=== PATIENT | male | born 1960 | race Caucasian/White ===

== ENCOUNTER 2019-12-15 09:30 | Outpatient (RCR) | payer OTHER ==
[~2019-12-15] VITALS: Ht 180.3 cm; Wt 87.3 kg
[2019-12-15] MEDS ORDERED: ASPI-999 PO (10:28)
[2019-12-15] MEDS ORDERED: ATOR20TA66 PO (10:28)
== END 2019-12-15 10:30 | disposition home or self-care (01) ==
LOC: PREOP 09:30
PROVIDERS: ATTEND Surgery
DX: Z01.818 Encounter for other preprocedural examination (principal)

== ENCOUNTER 2019-12-18 08:54 | Day surgery (SDC) | payer OTHER ==
--- NOTE | 2019-12-11 08:24 | HISTORY AND PHYSICAL ---
DATE OF SERVICE: 12/18/2019 DATE OF ADMISSION: 12/18/2019 ATTENDING PRIMARY PHARMACIST PER DIEM: Bianca Negrete APRN at the [facility] in [place]. HISTORY OF PRESENT ILLNESS: The patient is a 59-year-old male referred over to us for screening colonoscopy. He reports that he did have what sounds to be a Cologuard test, which was found to be positive. He has not had a colonoscopy in the past as well. He states that he does not report any major issues with diarrhea nor constipation as well as no red blood per rectum nor any dark tarry stools. He also does not report any family history of any colon cancer nor any other malignancies. PAST MEDICAL HISTORY: Hypercholesterolemia, sleep apnea. PAST SURGICAL HISTORY: Right inguinal hernia repair 2013, left knee arthroscopy in 1997, varicocele excision in 1985, deviated septum repair in 1988. ALLERGIES: No known drug allergies. MEDICATIONS: Aspirin 81 mg daily, atorvastatin 20 mg daily. SOCIAL HISTORY: Previous smoke, quit 15, 20 pack years. Negative alcohol. FAMILY HISTORY: Noncontributory. VITAL SIGNS: Blood pressure 172/80, current weight 192.2 pounds, height 5 feet 11 inches. REVIEW OF SYSTEMS: Well-nourished male in no acute distress. He is not experiencing any shortness of breath or difficulty breathing. No chest pain, palpitations, diaphoresis. No nausea, vomiting, no diarrhea or constipation. No fever, chills, no recent inadvertent weight loss. All other review of systems negative. PHYSICAL EXAMINATION: CHEST: Clear. Good breath sounds bilaterally. HEART: Regular, no murmurs. EXTREMITIES: No lower extremity edema, negative Homans sign. HEENT: No scleral icterus. NECK: No cervical lymphadenopathy. ABDOMEN: Soft, nontender, nondistended. No hernias. ASSESSMENT AND PLAN: A 59-year-old male with a positive stool DNA study in need of a screening colonoscopy, which we will schedule. Risks and benefits of the procedure were explained in depth and he is in full understanding and would like to proceed with the procedure. Job ID: [id number] DocumentID: [id number] Dictated Date: 12/09/2019 15:38:08 Behavioral Scientist Date: 12/09/2019 15:59:52 Dictated By: TEETEE FRAZIER MD
[2019-12-18] VITALS (14 sets, daily range): BP systolic 117–168; BP diastolic 63–85
[~2019-12-18] VITALS: Ht 180.3 cm; Wt 87.3 kg
[~2019-12-18 08:54] MED LIST: ASPI-999 PO; ATOR20TA66 PO
[2019-12-18] MEDS ORDERED: NS IV 500 ML 500 ML IV PRN (09:02)
[2019-12-18] MEDS ORDERED: NS IV 500 ML 500 ML ONE (09:06)
--- OUTSIDE RECORDS SUMMARY | 2019-12-18 09:09 | XMS REPORT | Continuity of Care Document ---
Author Organization Unknown Address Unknown Phone Unavailable Allergies Active Description Code Type Severity Reaction Onset Reported/Identified Relationship to Patient Clinical Status Yes No Known Drug Allergies [id number] Drug Allergy Unknown N/A 12/15/2019 Medications There is no data. Problems There is no data. Procedures There is no data. Results There is no data. Encounters ACCT No. Visit Date/Time Discharge Status Pt. Type Provider Facility Loc./Unit Complaint [id number] 12/15/2019 09:30:00 020 10:30:00 DIS Outpatient TEETEE FRAZIER MD [facility] PREOP SCREENING [id number] 12/18/2019 12:00:00 P EN Preadmit TEETEE FRAZIER MD [facility] [place] ENDO SCREENING
[2019-12-18] MEDS ORDERED: LIDOCAINE JELLY 2% 6 ML SYRINGE MM PRN (09:15)
[2019-12-18] MEDS ORDERED: fentaNYL INJECTION 100 MCG/2 ML AMP IVP ONE (09:15)
--- NOTE | 2019-12-18 09:18 | Progress Note-Pre Operative ---
Pre-Operative Progress Note H&P Reviewed The H&P was reviewed, patient examined and no changes noted. Date Seen by Provider: Dec 18, 2019 Time Seen by Provider: 09:15 Date H&P Reviewed: Dec 18, 2019 Time H&P Reviewed: 09:15 Pre-Operative Diagnosis: screening TEETEE Simpson MD Dec 18, 2019 09:18
--- NOTE | 2019-12-18 09:18 | Conscious Sedation/ASA ---
Conscious Sedation Pre-Proced Time 09:15 ASA Score 2 For ASA 3 and 4: Consider anesthesia and medical clearance. Also, for patients with a history of failed moderate sedation consider anesthesia. Airway Lungs Heart ASA score ASA 1: a normal healthy patient ASA 2: a patient with a mild systemic disease (mid diabetes, controlled hypertension, obesity ASA 3: a patient with a severe systemic disease that limits activity (angina, COPD, prior Myocardial infarction) ASA 4: a patient with an incapacitating disease that is a constant threat to life (CHF, renal failure) ASA 5: a moribund patient not expected to survive 24 hrs. (ruptured aneurysm) ASA 6: a declared brain- patient whose organs are being harvested. For emergent operations, add the letter E after the classification Mallampati Classification Grade 2 Sedation Plan Analgesia, Amnesia, Plan communicated to team members, Discussed options with patient/fam, Discussed risks with patient/fam The patient is an appropriate candidate to undergo the planned procedure, sedation, and anesthesia. The patient immediately re-assessed prior to indication. TEETEE FRAZIER MD Dec 18, 2019 09:17
--- NOTE | 2019-12-18 09:20 | Discharge Inst-Surgical ---
D/C Lap Instructions-FREDDIE Follow Up Activity as tolerated High Fiber Diet 25g or more per day Avoid Alcohol, Caffeine, Spicy [place] and Acid foods. Drink 64 fluid oz or more of fluids per day. Symptoms to Report: Fever over 101 degree F, Nausea/Vomiting If any problems/questions: Contact your physician or go to Emergency Room TEETEE FRAZIER MD Dec 18, 2019 09:19
[2019-12-18] MEDS ORDERED: MIDAZOLAM 5 MG/5 ML (VERSED) VIAL ONE ×2 (09:25)
[2019-12-18] MEDS ORDERED: LIDOCAINE JELLY 2% 6 ML SYRINGE ONE (09:25)
[2019-12-18] MEDS ORDERED: fentaNYL INJECTION 100 MCG/2 ML AMP ONE (09:25)
[2019-12-18] MEDS ORDERED: ACETAMINOPHEN 325 MG TABLET PO PRN (09:30)
[2019-12-18] MEDS ORDERED: morphine INJ 10 MG/ML 1ML (SYR OR VIAL) IVP PRN ×2 (09:30)
[2019-12-18] MEDS ORDERED: HYDROcodone/APAP 5 MG/325 MG (LORTAB) TAB PO PRN (09:30)
[2019-12-18] MEDS ORDERED: ONDANSETRON 4 MG/2 ML (SDV) Z0FRAN IVP PRN (09:30)
[2019-12-18] MEDS: MIDAZOLAM 5 MG/5 ML (VERSED) VIAL IV PRN ×4 (09:50→10:15)
--- NOTE | 2019-12-18 10:47 | Progress Note-Post Operative ---
Post-Operative Progess Note Surgeon (s)/Liner Machine Operator (s) Surgeon TEETEE FRAZIER MD Liner Machine Operator: none Pre-Operative Diagnosis screening colo Post-Operative Diagnosis normal colon and rectum Procedure & Operative Findings Date of Procedure 12/18/19 Procedure Performed/Findings colonoscopy Anesthesia Type cs Estimated Blood Loss Estimated blood loss (mL): minimal Specimens/Packing Specimens Removed none TEETEE FRAZIER MD Dec 18, 2019 10:47
--- NOTE | 2019-12-18 18:00 | OPERATIVE REPORT ---
DATE OF SERVICE: 12/18/2019 ATTENDING GAS TURBINE POWERPLANT MECHANIC: Bianca Negrete APRN at the [facility] in [place]. PREOPERATIVE DIAGNOSIS: Screening colonoscopy. POSTOPERATIVE DIAGNOSIS: Normal colon and rectum. PROCEDURE: Colonoscopy. SURGEON: Teetee Frazier MD ANESTHESIA: Conscious sedation. ESTIMATED BLOOD LOSS: Minimal. FINDINGS: Normal colon and rectum. No polyps or any neoplasms identified. DISPOSITION: The patient tolerated the procedure well. INDICATIONS: The patient is a 59-year-old male referred over to us for screening colonoscopy. He has not had a colonoscopy up to this point in his life. He does not report any major issues of diarrhea or constipation as well as no red blood per rectum nor any dark tarry stools. He also does not report any family history of colon cancer. DESCRIPTION OF PROCEDURE: The patient was brought to the endoscopy suite, laid in the left lateral decubitus position. After adequate IV pain and stated medications and conscious sedation anesthesia, digital rectal examination was performed. No significant hemorrhoids were identified. Normal sphincter tone was felt and no palpable masses. Prostate gland was palpable and appeared normal. The endoscope was then intubated and anus and rectum gently insufflated. The endoscope was then advanced to the valves of [place] of the rectum with no polyps or any neoplasms identified. the sigmoid colon, no diverticulosis identified. The endoscope was then advanced and remainder of the descending, transverse and ascending colon to the cecum. These segments were normal. There were no polyps or any neoplasms identified throughout the colon or rectum. The endoscope was then slowly withdrawn while taking a second look and suctioning of residual air with no additional findings. The patient tolerated the procedure well. We will recommend medical management with a high fiber diet with 30 grams of fiber daily as well as significant amounts of water daily to promote soft stools on a daily basis. If he is asymptomatic, he does not need another colonoscopy for another 10 years. Job ID: [id number] DocumentID: [id number] Dictated Date: 12/18/2019 10:24:05 Comptometer Operator Date: 12/18/2019 18:00:28 Dictated By: TEETEE FRAZIER MD
== END 2019-12-18 11:10 | disposition home or self-care (01) ==
LOC: ENDO 08:54
PROVIDERS: ATTEND Surgery
DX: Z12.11 Encounter for screening for malignant neoplasm of colon (principal); E78.00 Pure hypercholesterolemia, unspecified; G47.30 Sleep apnea, unspecified; Z79.82 Long term (current) use of aspirin; Z79.899 Other long term (current) drug therapy; Z87.891 Personal history of nicotine dependence